=== PATIENT | female | born 1955 | race Caucasian/White ===

== ENCOUNTER 2019-02-13 10:10 | Inpatient (IN) | payer OTHER ==
[~2019-02-13] VITALS: Ht 165.1 cm; Wt 78.0 kg
[2019-02-13] VITALS (13 sets, daily range): BP systolic 117–137; BP diastolic 60–88; PULSE 78–116; RESP 12–22; Ht 165.1 cm; Wt 78.0 kg
--- NOTE | 2019-02-13 12:49 | HP ---
Date/Time of Note Date/Time of Note DATE: 02/13/19 TIME: 12:40 Assessment/Plan VTE Prophylaxis SCD applied (from Nsg): No SCD contraindicated: bilateral LE trauma Pharmacological prophylaxis: heparin Assessment/Plan Problems: (1) Pre-op exam Status: Acute Comment: We do not have all the labs back but assuming the laboratory and chest x-ray are normal in this patient should be considered an excellent surgical candidate. She is at low risk as compared to her age-matched peers during due to her being so physically active and in good condition. She should do well using all standard routine anesthesia precautions although I would give her breathing treatment on-call to the OR, due to the history of asthma. The modified Mayers's risk classification should be considered low to intermediate risk. The EKG is unremarkable (2) Trimalleolar fracture of left ankle Status: Acute Comment: For surgical repair today with Dr. Nath Qualifiers: Encounter type: initial encounter Fracture type: closed Qualified Codes: S82.852A - Displaced trimalleolar fracture of left lower leg, initial encounter for closed fracture (3) Rhinitis Status: Chronic Comment: Noted. Consideration for Montella cast Qualifiers: Rhinitis type: allergic Allergic rhinitis trigger: unspecified Allergic rhinitis seasonality: non-seasonal Qualified Codes: J30.89 - Other allergic rhinitis (4) Gallstone pancreatitis Status: Resolved Comment: Historical note and not active (5) Status post cholecystectomy Status: Chronic Comment: Historical note and not relevant to the current situation (6) Migraine syndrome Status: Chronic Comment: Adequately compensated (7) Asthma, mild intermittent Status: Chronic Comment: Recommend breathing treatment health information technologist to the OR Qualifiers: Asthma complication type: uncomplicated Qualified Codes: J45.20 - Mild intermittent asthma, uncomplicated CC: CHINA BERNAL MD; MICHAEL NATH MD ; HPI/ROS Admit Date/Time Admit Date/Time February 13 2019 Hx of Present Illness This is the first [facility] admission for this 63-year-old right-handed female who was admitted directly from [facility] [place] [facility] [place] for surgery. She had been in her usual state of health with a history of a prior left ankle fracture that had done well. On the evening of February 09, 2019 she was carrying her brand-new puppy [place] stairs in front of her house missed a step fell injuring the left ankle. She was seen at [facility] and was diagnosed as having a trimalleolar fracture placed in a posterior splint and told to see her regular physicians at [facility] [place] [facility] [place]. He was seen today and is being admitted directly for ORIF of this unstable fracture. She is otherwise in general very good health and on no medications. Please see the review of systems ROS Constitutional: no complaints (No fevers chills sweats, or unplanned weight change) Eyes: no complaints ENT: other (Chronic allergic rhinitis otherwise negative) Respiratory: no complaints (History of asthma intermittent mild with nocturnal awakening 2-3 days/week) Cardiovascular: no complaints (No chest pain palpitations orthopnea and PND and she was able to climb multiple flights of stairs unimpeded prior to the injury and could climb in the [place] hiking 4-5 miles unimpeded) Gastrointestinal: no complaints Genitourinary: no complaints Musculoskeletal: other (Prior to the injury well compensated. Left ankle pain since) Skin: no complaints Neurologic: no complaints Endocrine: no complaints Lymphatic: no complaints (No bleeding disorders no history of blood clots) Psychological: no complaints, nl mood/affect Immunologic: no complaints PMH/Family/Social Past Medical History Medical History: other (Asthma intermittent mild; history of gallstone pancreatitis 2005; Ab0; migraine syndrome; allergic rhinitis) Medications Multiple vitamins once a day Coded Allergies: No Known Allergy (Unverified , 02/13/19) Past Surgical History Past Surgical Hx: cholecystectomy Family History Significant Family History: hypertension, lung disease (Asthma), other (Positive abdominal aortic aneurysm; positive osteoporosis; negative for anesthesia reactions) Social History Born in [facility] [place] and raised. 2 years of college without experience. for 25 years and lives with her spouse and pet dogs. Retir ed [employer] [place] Alcohol Use: occasionally Smoking Status: Never smoker Drug Use: none Exam/Review of Systems Vital Signs Vitals Vital Signs Date Temp Pulse Resp B/P (MAP) Pulse Ox O2 O2 Flow FiO2 Time Delivery Rate 02/13/19 98.1 72 18 130/72 99 10:24 (91) Exam Constitutional: alert, oriented Psych: no complaints, nl mood/affect Head: normocephalic, atraumatic Eyes: nl conjunctiva, EOMI, nl lids, nl sclera, PERRL ENMT: nl external ears & nose, nl lips & teeth, nl nasal mucosa & septum, mucosa pink and moist Neck: supple, non-tender Respiratory: clear to auscultation, normal air movement Cardiovascular: regular rate and rhythm, nl pulses Gastrointestinal: soft, nl liver, spleen, non-tender Musculoskeletal: other (Left leg with posterior splint in place otherwise fully negative) Neurological: MANAGER OF ENVIRONMENTAL SERVICES II-XII intact, nl mental status, nl speech, nl strength Skin: nl turgor, rash or lesions Lymph: nl lymph nodes RADHA LUU MD Feb 13, 2019 12:49
--- NOTE | 2019-02-13 12:50 | ERD ---
ER Documentation Chief Complaint Chief Complaint SEND BY PMD FOR ADMISSION, NEEDS ANKLE SURGERY HPI 63-year-old female presenting with left ankle injury she sustained on 02/09/2019. She states that she tripped and fell off her front porch. She went to [facility] where she was diagnosed with an ankle fracture and placed in a splint. She followed up with Dr. Cano at [facility] today and was told she needed emergent surgery. She denies any numbness or tingling in her foot or leg. The pain is currently 4 out of 10, sharp, nonradiating, in the left ankle. Exacerbated by any movement. Improved with rest. ROS All systems reviewed and are negative except as per history of present illness. Allergies Allergies: Coded Allergies: No Known Allergy (Unverified , 02/13/19) PMhx/Soc Medical and Surgical Hx: pt denies Surgical Hx Hx Miscellaneous Medical Probl: Yes Hx Alcohol Use: No Hx Substance Use: No Hx Tobacco Use: No Smoking Status: Never smoker FmHx No pertinent history Physical Exam Vitals Vital Signs Date Temp Pulse Resp B/P (MAP) Pulse Ox O2 O2 Flow FiO2 Time Delivery Rate 02/13/19 98.1 72 18 130/72 99 10:24 (91) Physical Exam Const: No acute distress Head: Atraumatic Eyes: Normal Conjunctiva ENT: Normal External Ears, Nose and Mouth. Neck: Full range of motion. No meningismus. Resp: Clear to auscultation bilaterally Cardio: Regular rate and rhythm, no murmurs Abd: Soft, non tender, non distended. Normal bowel sounds Skin: No petechiae or rashes Back: No midline or flank tenderness Ext: LLE in splint, toes appear well perfused. otherwise exam limited due to splint in place. All other extremities atraumatic, pulses intact. Neur: Awake and alert Psych: Normal Mood and Affect Procedures/MDM Patient is presenting with recent left ankle injury 4 days ago, grossly neurovascularly intact. She is hemodynamically stable. She was already seen by her primary care doctor and admitting physician, Dr. Tong. Preop labs have been ordered. [facility] Diagnosis: Primary Impression: Fracture of ankle, trimalleolar, left, closed Encounter type: initial encounter Qualified Codes: S82.852A - Displaced trimalleolar fracture of left lower leg, initial encounter for closed fracture Condition: Stable CHINA BERNAL MD Feb 13, 2019 12:50
[2019-02-13] MEDS ORDERED: ACETAMINOPHEN 325 MG TAB PO PRN ×2 (13:00→18:30)
[2019-02-13] MEDS ORDERED: ONDANSETRON 4 MG INJ IV PRN ×3 (13:00→18:30)
[2019-02-13] MEDS ORDERED: MONTELUKAST 10 MG TAB PO ONE (13:00)
[2019-02-13] MEDS: FLUTICASONE/VILANTEROL 100-25 INH SCH (13:00)
[2019-02-13] MEDS ORDERED: CHOL500010 PO (13:59)
[2019-02-13] MEDS ORDERED: UBID100C24 PO (14:00)
[2019-02-13] MEDS ORDERED: MAGN250T24 PO (14:00)
[2019-02-13] MEDS ORDERED: CALC-209 PO (14:01)
--- NOTE | 2019-02-13 16:40 | PREAC ---
Date/Time of Note Date/Time of Note DATE: 02/13/19 TIME: 16:38 Anesthesia Eval and Record Evaluation Time Pre-Procedure Interview DATE: 02/13/19 TIME: 16:38 Age 63 Sex female NPO: 8 hrs (trimalleoular fracture) Preoperative diagnosis left ankle trimalleoular fracture Planned procedure ORIF left ankle Past Medical History Past Medical History: Includes Pulm: Asthma Surgery & Anesthesia Issues No known issue Meds Anticoagulation: No Beta Kg within 24 hr: No Reason Beta Kg not given: Pt. not on B-Kg Reported Medications Calcium Carbonate/Vitamin D3 (Calcium 250+D Tablet) 1 Each Tablet, 1 EACH PO DAILY, TAB 02/13/19 Ubidecarenone (Coq-10) 100 Mg Capsule, 100 MG PO DAILY, CAP 02/13/19 Magnesium (Magnesium) 250 Mg Tablet, 250 MG PO BID, TAB 02/13/19 Cholecalciferol (Vitamin D3) 5,000 Unit Tablet, 2500 UNIT PO Q OTHER DAY, TAB 02/13/19 Current Medications Ondansetron HCl (Zofran Inj) 4 mg BRIDGE ORDER PRN IV NAUSEA/VOMITING; Start 02/13/19 at 13:00; Stop 02/14/19 at 12:59 Acetaminophen (Tylenol Tab) 650 mg ER BRIDGE PRN PO .MILD PAIN 1-3 OR TEMP; Start 02/13/19 at 13:00; Stop 02/14/19 at 12:59 Fluticasone/ Vilanterol (Breo Ellipta 100-25 Mcg Inh) 1 inh DAILY INH ; Start 02/13/19 at 13:00 Meds reviewed: Yes Allergies Coded Allergies: No Known Allergy (Unverified , 02/13/19) Allergies Reviewed: Yes Labs/Studies Labs Reviewed: Reviewed by anesthesiologist Result Diagram: 02/13/19 1251 02/13/19 1251 Laboratory Tests 02/13/19 12:51 test: N/A Studies: ECG (sr), CXR (nl) Pre-procedure Exam Last vitals Vital Signs Date Temp Pulse Resp B/P (MAP) Pulse Ox O2 O2 Flow FiO2 Time Delivery Rate 02/13/19 75 20 119/75 99 Room Air 15:00 (90) 02/13/19 98.1 10:24 Airway: Adequate mouth opening Mallampati: Mallampati II Teeth: Normal Lung: Normal Heart: Normal ASA Physical Status ASA physical status: 2 Emergency: None Planned Anesthetic General/MAC: LMA Nerve block: Femoral (left), Sciatic (left) Planned Pain Management Single shot nerve block, Parenteral pain med Pre-operative Attestations Prior to commencing anesthesia and surgery, the patient was re-evaluated, there was verification of: *The patient's identity *The results of appropriate recent lab work and preoperative vital signs *The above evaluation not changing prior to induction *Anesthetic plan, risk benefits, alternative and complications discussed with patient/family; questions answered; patient/family understands, accepts and wishes to proceed. TG EDDY MD Feb 13, 2019 16:40
[2019-02-13] MEDS ORDERED: DIPHENHYDRAMINE 50 MG INJ IV PRN (17:00)
[2019-02-13] MEDS ORDERED: MEPERIDINE 25 MG INJ IV PRN (17:00)
[2019-02-13] MEDS ORDERED: HYDROmorphONE 1 MG/5 ML IV SYRINGE IV PRN ×3 (17:00)
[2019-02-13] MEDS ORDERED: KETOROLAC 30 MG INJ IV PRN (17:00)
[2019-02-13] MEDS ORDERED: FENTAnyl 50 MCG/ML VIAL IV PRN ×3 (17:00)
[2019-02-13] MEDS ORDERED: ROPIVACAINE 0.5 % 30 ML VIAL ONE ×2 (17:05→17:22)
[2019-02-13] MEDS ORDERED: POLYMYXIN/BACITRACIN 1L IRRIG ONE ×2 (17:05→17:11)
[2019-02-13] MEDS ORDERED: NEOMYC/POLYMYX/BACIT 30 GM OINT ONE (17:05)
[2019-02-13] MEDS ORDERED: MIDAZOLAM 1 MG/ML 2 ML INJ ONE (17:18)
[2019-02-13] MEDS ORDERED: METOCLOPRAMIDE 10 MG INJ ONE (17:19)
[2019-02-13] MEDS ORDERED: PROPOFOL 20 ML ONE ×2 (17:21→21:07)
[2019-02-13] MEDS ORDERED: ONDANSETRON 4 MG INJ ONE (17:21)
[2019-02-13] MEDS ORDERED: CEFAZOLIN 1 GM INJ ONE (17:21)
[2019-02-13] MEDS ORDERED: KETOROLAC 30 MG INJ ONE (17:22)
[2019-02-13] MEDS ORDERED: ROPIVACAINE 0.2% 20 ML VIAL ONE (18:20)
[2019-02-13] MEDS ORDERED: DIPHENHYDRAMINE 25 MG CAP PO PRN (18:30)
[2019-02-13] MEDS ORDERED: HYDROmorphONE 1 MG/ML SYG IV PRN (18:30)
[2019-02-13] MEDS ORDERED: CEFAZOLIN 1 GM INJ IV SCH (18:30)
[2019-02-13] MEDS ORDERED: oxyCODONE 5 MG TAB PO PRN (18:30)
[2019-02-13] MEDS ORDERED: FENTAnyl 50 MCG/ML VIAL ONE (18:41)
[2019-02-13] MEDS ORDERED: HYDROmorphONE 2 MG/ML SYG ONE (19:03)
--- NOTE | 2019-02-13 21:23 | OPR ---
Date/Time of Note Date/Time of Note DATE: 02/13/19 TIME: 21:23 Operative Report Procedure Date: Feb 13, 2019 Preoperative Diagnosis LEFT ANKLE TRIMALLEOLAR ANKLE FRACTURE Postoperative Diagnosis LEFT ANKLE TRIMALLEOLAR ANKLE FRACTURE LEFT ANKLE SYNDESMOSIS DISRUPTION LEFT ANKLE LOOSE BODY Operation/Procedure Performed LEFT ANKLE TRIMALLEOLAR ANKLE FRACTURE ORIF WITHOUT FIXATION OF POSTERIOR LIP LEFT ANKLE SYNDESMOSIS ORIF LEFT ANKLE LOOSE BODY REMOVAL Surgeon SHREYAS NATH MD Manager Bridge NONE Anesthesia Type: general, other (POPLITEAL AND ADDUCTOR) Anesthesiologist: TG EDDY MD Tourniquet Time: 107 MIN AT 250 MMG Estimated Blood Loss: minimal Transfusion none Specimen NONE Grafts/Implants Arthrex distal fibular titanium locking plate, tightrope, 3.0 mm quickfix screws x 2 Arthrex Amnion Mimedix Amniotic Membrane Complications none Pt Condition Post Procedure: stable Disposition: PACU Indications Patient is a 63-year-old female who sustained a left ankle trimalleolar fracture 3 days ago. She presented to my office this morning with a displaced ankle fracture and impending open wound over the medial malleolus. Given the severity of the impending open wound I admit the patient to the emergency room for urgent open reduction internal fixation this evening. Risk Note: Patient was explained the risks and benefits of surgery and the patient's iroquois language including not limited to infection, bleeding, injury to blood vessels, nerves, ligaments or tendons. Risks of anesthesia, deep vein thrombosis and need for reduce future surgery. Patient acknowledged these risk by signing the surgical consent form. Procedure Description The patient was met in the preoperative holding area, marked with the correct operative extremity confirmed with both patient and consent. The patient was then brought back in the operative theater, placed supine on operative table, given preoperative antibiotics and preoperative regional block anesthesia. The patient was then prepped and draped in the normal sterile fashion. All parties in the room did a timeout and everyone agreed it was the correct patient, and extremity and procedure. Attention was then turned initially to the distal fibular fracture. An incision was made over the the fibula. The incision was taken down to the fibula with care taken to avoid injury to the neurovascular structures. The fracture was identified and reduced and fixated with a distal fibular plate and fibula was reduced and held out to show that there was fibular length and alignment and rotation had been re-achieved. Once this was shown, the wound was irrigated thoroughly. A manual external rotation stress xray was performed showing syndesmosis widening. A syndesmotic tightrope was then placed across the joint to reduce the syndesmosis. Attention was then brought over to the medial aspect of the ankle and incision w as taken down over the medial aspect of the ankle where there was shown to be a displaced medial malleolus fracture. The joint was investigated and large 1.0 cm loose body was removed from the medial clear space. The remainder of the joint was thoroughly irrigate. The fracture was then reduced and fixated with 2 3.0 mm QuicFix partially threaded screws All wounds were thoroughly irrigated and Amnion amniotic membrane was laid over the medial and lateral ankle wound and then closed with initially 2-0 Vicryl, followed by 3-0 Monocryl followed by 3-0 nylon in a vertical mattress fashion. All wounds were dressed with amniotic membrane over the impending open wound site and Xeroform, antibiotic ointment, 4 x 4s, 5 ABDs were placed and the patient was placed in a well-padded short leg splint. Tourniquet had been brought down prior to this and hemostasis had been achieved prior to the wound closure. The wounds were irrigated thoroughly prior to closure as well. All sponge and needle counts were correct and toes were warm and well perfused in the PACU SHREYAS NATH MD Feb 13, 2019 21:23
[2019-02-13] MEDS: CEFAZOLIN 1 GM/50 ML (PMX) 50 ML IVPB SCH (23:14)
[2019-02-13] MEDS: GABAPENTIN 300 MG CAP PO SCH (23:14)
[2019-02-14 03:46] VITALS: BP 110/57; PULSE 72; RESP 18
[2019-02-14] MEDS: CEFAZOLIN 1 GM/50 ML (PMX) 50 ML IVPB SCH ×3 (05:45→21:18)
[2019-02-14 07:28] VITALS: BP 114/66; PULSE 74; RESP 18
[2019-02-14] MEDS: FLUTICASONE/VILANTEROL 100-25 INH SCH (08:58)
[2019-02-14] MEDS ORDERED: ASCORBIC ACID 500 MG TAB.CHEW PO SCH (09:00)
[2019-02-14] MEDS: GABAPENTIN 300 MG CAP PO SCH ×3 (09:01→21:18)
[2019-02-14] MEDS: CHOLECALCIFEROL 1,000 UNIT TAB PO SCH (09:04)
[2019-02-14] MEDS: ASCORBIC ACID 500 MG TAB PO SCH (10:39)
[2019-02-14 13:57] VITALS: BP 117/65; PULSE 84; RESP 18
--- NOTE | 2019-02-14 14:03 | PN ---
Date/Time of Note Date/Time of Note DATE: 02/14/19 TIME: 14:01 Assessment/Plan VTE Prophylaxis Risk score (from [facility])>0 risk: 4 SCD applied (from [facility]): Yes Pharmacological prophylaxis: heparin Lines/Catheters IV [facility]ter Type (from [facility]): Peripheral IV Assessment/Plan Problems: (1) Fracture of ankle, trimalleolar, left, closed Status: Acute Comment: Doing well postop. At this time she is not quite ready for discharge so we will aim for tomorrow Qualifiers: Encounter type: initial encounter Qualified Codes: S82.852A - Displaced trimalleolar fracture of left lower leg, initial encounter for closed fracture (2) Status post ORIF of fracture of ankle Onset Date: ~ 02/13/2019 Status: Acute Comment: Good outcome (3) Asthma, mild intermittent Status: Chronic Comment: Stable and controlled Qualifiers: Asthma complication type: uncomplicated Qualified Codes: J45.20 - Mild intermittent asthma, uncomplicated (4) Migraine syndrome Status: Chronic Comment: Adequate control Result Diagram: 02/13/19 1251 02/13/19 1251 Results 24hrs Laboratory Tests Test 02/14/19 03:30 Urine Color ARIES Urine Clarity SLIGHTLY CLOUDY A Urine pH 5.0 Urine Specific [place] 1.028 Urine Ketones TRACE A Urine Nitrite NEGATIVE Urine Bilirubin NEGATIVE Urine Urobilinogen NEGATIVE Urine Leukocyte Esterase NEGATIVE Urine Microscopic RBC 1 Urine Microscopic WBC 3 Urine Squamous Epithelial Cells FEW Urine Bacteria FEW A Urine Mucus FEW A Urine Hemoglobin NEGATIVE Urine Glucose NEGATIVE Urine Total Protein NEGATIVE Subjective 24 Hr Interval Summary Free Text/Dictation Patient reports she is feeling well except that she is tired (receiving gabapentin). Constitutional: no complaints Respiratory: no complaints Cardiovascular: no complaints Gastrointestinal: no complaints Genitourinary: no complaints Exam/Review of Systems Exam Vitals Vital Signs Date Temp Pulse Resp B/P (MAP) Pulse Ox O2 O2 Flow FiO2 Time Delivery Rate 02/14/19 98.3 84 18 117/65 99 Room Air 13:57 (82) 02/14/19 2.0 03:46 Intake and Output 02/13/19 02/13/19 02/14/19 1515:00 23:00 07:00 IntakeIntake Total 860 ml 350 ml OutputOutput Total 5 ml 450 ml BalanceBalance 855 ml -100 ml Constitutional: alert, oriented Respiratory: clear to auscultation, normal air movement Cardiovascular: regular rate and rhythm, nl pulses Gastrointestinal: soft, nl liver, spleen, non-tender Results Results 24hrs Laboratory Tests Test 02/14/19 03:30 Urine Color ARIES Urine Clarity SLIGHTLY CLOUDY A Urine pH 5.0 Urine Specific [place] 1.028 Urine Ketones TRACE A Urine Nitrite NEGATIVE Urine Bilirubin NEGATIVE Urine Urobilinogen NEGATIVE Urine Leukocyte Esterase NEGATIVE Urine Microscopic RBC 1 Urine Microscopic WBC 3 Urine Squamous Epithelial Cells FEW Urine Bacteria FEW A Urine Mucus FEW A Urine Hemoglobin NEGATIVE Urine Glucose NEGATIVE Urine Total Protein NEGATIVE Medications Medication Current Medications Fluticasone/ Vilanterol (Breo Ellipta 100-25 Mcg Inh) 1 inh DAILY INH ; Start 02/13/19 at 13:00 Ondansetron HCl (Zofran Inj) 4 mg Q4H PRN IV NAUSEA AND/OR VOMITING Last administered on 02/14/19at 10:45; Admin Dose 4 MG; Start 02/13/19 at 18:30 Diphenhydramine HCl (Benadryl) 25 mg Q4H PRN PO ITCHING; Start 02/13/19 at 18:30 Rivaroxaban (Xarelto) 10 mg WITH DINNER PO ; Start 02/14/19 at 17:55 Oxycodone HCl (Roxicodone) 5 mg Q4H PRN PO MODERATE PAIN LEVEL 4-6 Last a dministered on 02/14/19at 09:08; Admin Dose 5 MG; Start 02/13/19 at 18:30 Acetaminophen (Tylenol Tab) 325 mg Q4H PRN PO MILD PAIN(1-3)OR ELEVATED TEMP; Start 02/13/19 at 18:30 Hydromorphone HCl (Dilaudid) 1 mg Q3H PRN IV SEVERE PAIN LEVEL 7-10 Last administered on 02/14/19at 10:42; Admin Dose 1 MG; Start 02/13/19 at 18:30 Gabapentin (Neurontin) 300 mg TID PO Last administered on 02/14/19at 13:36; Admin Dose 300 MG; Start 02/13/19 at 21:00 Cefazolin Sodium 50 ml @ 100 mls/hr Q8 IVPB Last administered on 02/14/19 13:36; Admin Dose 100 MLS/HR; Start 02/13/19 at 22:00; Stop 02/15/19 at 14:29 Cholecalciferol (Vitamin D) 5,000 unit DAILY PO Last administered on 02/14/19at 09:04; Admin Dose 5,000 UNIT; Start 02/14/19 at 09:00 Ascorbic Acid (Vitamin C) 500 mg DAILY PO Last administered on 02/14/19at 10:39; Admin Dose 500 MG; Start 02/14/19 at 09:40 RADHA LUU MD Feb 14, 2019 14:03
--- NOTE | 2019-02-14 14:45 | PAC ---
Date/Time of Note Date/Time of Note DATE: 02/14/19 TIME: 14:44 Post-Anesthesia Notes Post-Anesthesia Note Last documented vital signs Vital Signs Date Temp Pulse Resp B/P (MAP) Pulse Ox O2 O2 Flow FiO2 Time Delivery Rate 02/14/19 98.3 84 18 117/65 99 Room Air 13:57 (82) 02/14/19 2.0 03:46 Activity: WNL Respiratory function: WNL Cardiovascular function: WNL Mental status: Baseline Pain reasonably controlled: Yes Hydration appropriate: Yes Nausea/Vomiting absent: No TG EDDY MD Feb 14, 2019 14:45
--- NOTE | 2019-02-14 15:17 | PN ---
Date/Time of Note Date/Time of Note DATE: 02/14/19 TIME: 15:16 Assessment/Plan Lines/Catheters IV Catheter Type (from Nrsg): Peripheral IV Assessment/Plan Assessment/Plan POD#1 s/p LEFT ANKLE TRIMALLEOLAR ANKLE FRACTURE ORIF WITHOUT FIXATION OF POSTERIOR LIP LEFT ANKLE SYNDESMOSIS ORIF LEFT ANKLE LOOSE BODY REMOVAL NWB to the lle PT to GT Xarelto for DVT prophylaxis po and Iv pain control will keep in hospital for another night for pain control. Bacilio Nath MD Subjective 24 Hr Interval Summary Patient doing ok. Pain is still very high Constitutional: no complaints Feeding: advancing diet Pain Control: well controlled Exam/Review of Systems Vital Signs Vitals Vital Signs Date Temp Pulse Resp B/P (MAP) Pulse Ox O2 O2 Flow FiO2 Time Delivery Rate 02/15/19 98.0 95 18 122/76 95 14:29 (91) 02/14/19 Room Air 13:57 02/14/19 2.0 03:46 Intake and Output 02/14/19 02/14/19 02/15/19 1515:00 23:00 07:00 IntakeIntake Total 800 ml 450 ml 350 ml OutputOutput Total 600 ml BalanceBalance 800 ml 450 ml -250 ml Exam Constitutional: alert, oriented, well developed Musculoskeletal: other (LLE/ splint intact, toes wwp, toes wiggle, silt to the exposed toes) Results Result Diagram: 02/13/19 1251 02/13/19 1251 SHREYAS NATH MD Feb 14, 2019 15:17
[2019-02-14] MEDS ORDERED: KETOROLAC 30 MG INJ IV STA (15:18)
[2019-02-14] MEDS: ACETAMINOPHEN 500 MG TAB PO SCH ×2 (15:48→21:18)
[2019-02-14] MEDS ORDERED: RIVAROXABAN 10 MG TABLET PO SCH (17:55)
[2019-02-14 19:30] VITALS: BP 114/67; PULSE 87; RESP 18
[2019-02-15 02:10] VITALS: BP 125/62; PULSE 86; RESP 18
[2019-02-15] MEDS: ACETAMINOPHEN 500 MG TAB PO SCH ×2 (04:33→09:36)
[2019-02-15] MEDS: CEFAZOLIN 1 GM/50 ML (PMX) 50 ML IVPB SCH ×2 (06:11→13:11)
[2019-02-15 08:09] VITALS: BP 129/72; PULSE 83; RESP 18
[2019-02-15] MEDS: FLUTICASONE/VILANTEROL 100-25 INH SCH (09:00)
[2019-02-15] MEDS: CHOLECALCIFEROL 1,000 UNIT TAB PO SCH (09:36)
[2019-02-15] MEDS: ASCORBIC ACID 500 MG TAB PO SCH (09:37)
[2019-02-15] MEDS: GABAPENTIN 300 MG CAP PO SCH ×2 (09:37→13:11)
--- NOTE | 2019-02-15 12:56 | PN ---
Date/Time of Note Date/Time of Note DATE: 02/15/19 TIME: 12:55 Assessment/Plan VTE Prophylaxis Risk score (from Ns)>0 risk: 8 SCD applied (from Ns): Yes Pharmacological prophylaxis: heparin Lines/Catheters IV Catheter Type (from Nrsg): Saline Lock Assessment/Plan Problems: (1) Status post ORIF of fracture of ankle Onset Date: ~ 02/13/2019 Status: Acute Comment: Has done well postoperatively and is now stable for discharge as per orthopedic surgery (2) Migraine syndrome Status: Chronic Comment: Stable and presently quiescent (3) Asthma, mild intermittent Status: Chronic Comment: Controlled and compensated Qualifiers: Asthma complication type: uncomplicated Qualified Codes: J45.20 - Mild intermittent asthma, uncomplicated Result Diagram: 02/13/19 1251 02/13/19 1251 Subjective 24 Hr Interval Summary Free Text/Dictation Patient reports she is doing well and has better pain control and would like to be able to go home today Constitutional: no complaints Respiratory: no complaints Cardiovascular: no complaints Gastrointestinal: no complaints Genitourinary: no complaints Musculoskeletal: other (Some stinging at the area of the surgical site otherwise well) Exam/Review of Systems Exam Vitals Vital Signs Date Temp Pulse Resp B/P (MAP) Pulse Ox O2 O2 Flow FiO2 Time Delivery Rate 02/15/19 97.5 83 18 129/72 94 08:09 (91) 02/14/19 Room Air 13:57 02/14/19 2.0 03:46 Intake and Output 02/14/19 02/14/19 02/15/19 1515:00 23:00 07:00 IntakeIntake Total 800 ml 450 ml 350 ml OutputOutput Total 600 ml BalanceBalance 800 ml 450 ml -250 ml Constitutional: alert, oriented Neck: supple, non-tender Respiratory: clear to auscultation, normal air movement Cardiovascular: regular rate and rhythm, nl pulses Extremities: other (Left lower extremity in a posterior brace patient is able to move her toes and has normal sensation in the toes with good capillary refill) Medications Medication Current Medications Fluticasone/ Vilanterol (Breo Ellipta 100-25 Mcg Inh) 1 inh DAILY INH ; Start 02/13/19 at 13:00 Ondansetron HCl (Zofran Inj) 4 mg Q4H PRN IV NAUSEA AND/OR VOMITING Last administered on 02/14/19 10:45; Admin Dose 4 MG; Start 02/13/19 at 18:30 Diphenhydramine HCl (Benadryl) 25 mg Q4H PRN PO ITCHING; Start 02/13/19 at 18:30 Rivaroxaban (Xarelto) 10 mg WITH DINNER PO Last administered on 02/14/19 18:15; Admin Dose 10 MG; Start 02/14/19 at 17:55 Oxycodone HCl (Roxicodone) 5 mg Q4H PRN PO MODERATE PAIN LEVEL 4-6 Last administered on 02/14/19 09:08; Admin Dose 5 MG; Start 02/13/19 at 18:30 Acetaminophen (Tylenol Tab) 325 mg Q4H PRN PO MILD PAIN(1-3)OR ELEVATED TEMP; Start 02/13/19 at 18:30 Hydromorphone HCl (Dilaudid) 1 mg Q3H PRN IV SEVERE PAIN LEVEL 7-10 Last administered on 02/14/19 10:42; Admin Dose 1 MG; Start 02/13/19 at 18:30 Gabapentin (Neurontin) 300 mg TID PO Last administered on 02/15/19 09:37; Admin Dose 300 MG; Start 02/13/19 at 21:00 Cefazolin Sodium 50 ml @ 100 mls/hr Q8 IVPB Last administered on 02/15/19 06:11; Admin Dose 100 MLS/HR; Start 02/13/19 at 22:00; Stop 02/15/19 at 14:29 Cholecalciferol (Vitamin D) 5,000 unit DAILY PO Last administered on 02/15/19 09:36; Admin Dose 5,000 UNIT; Start 02/14/19 at 09:00 Ascorbic Acid (Vitamin C) 500 mg DAILY PO Last administered on 02/15/19 09:37; Admin Dose 500 MG; Start 02/14/19 at 09:40 Acetaminophen (Tylenol Tab) 500 mg Q6H PO Last administered on 02/15/19 09:36; Admin Dose 500 MG; Start 02/14/19 at 15:30 RADHA LUU MD Feb 15, 2019 12:56
--- NOTE | 2019-02-15 14:03 | PN ---
Date/Time of Note Date/Time of Note DATE: 02/15/19 TIME: 14:03 Assessment/Plan Lines/Catheters IV Catheter Type (from Nrsg): Saline Lock Assessment/Plan Assessment/Plan POD#2 s/p LEFT ANKLE TRIMALLEOLAR ANKLE FRACTURE ORIF WITHOUT FIXATION OF POSTERIOR LIP LEFT ANKLE SYNDESMOSIS ORIF LEFT ANKLE LOOSE BODY REMOVAL NWB to the lle PT to GT Xarelto for DVT prophylaxis po and Iv pain control will dc home today when cleared by Medicine Bacilio Nath MD Subjective 24 Hr Interval Summary Feeling much better today Exam/Review of Systems Vital Signs Vitals Vital Signs Date Temp Pulse Resp B/P (MAP) Pulse Ox O2 O2 Flow FiO2 Time Delivery Rate 02/15/19 98.0 95 18 122/76 95 14:29 (91) 02/14/19 Room Air 13:57 02/14/19 2.0 03:46 Intake and Output 02/14/19 02/14/19 02/15/19 1515:00 23:00 07:00 IntakeIntake Total 800 ml 450 ml 350 ml OutputOutput Total 600 ml BalanceBalance 800 ml 450 ml -250 ml Exam Constitutional: alert, oriented, well developed Musculoskeletal: other (LLE/ Splint intact, toes wiggle, silt to the exposed toes, toes wwp) Results Result Diagram: 02/13/19 1251 02/13/19 1251 SHREYAS NATH MD Feb 15, 2019 14:03
[2019-02-15 14:29] VITALS: BP 122/76; PULSE 95; RESP 18
== END 2019-02-15 16:30 | disposition home or self-care (01) | DRG 494 ==
LOC: E/R 10:10 → REC 12:46 → MS1 22:50
PROVIDERS: ADMIT Internal Medicine; ATTEND Internal Medicine
PROC: 0QSH04Z Reposition Left Tibia with Internal Fixation Device, Open Approach (ICD-10-PCS; 2019-02-13)
PROC: 0SSG04Z Reposition Left Ankle Joint with Internal Fixation Device, Open Approach (ICD-10-PCS; 2019-02-13)
PROC: 0QCH0ZZ Extirpation of Matter from Left Tibia, Open Approach (ICD-10-PCS; 2019-02-13)
PROC: 0QUK0KZ Supplement Left Fibula with Nonautologous Tissue Substitute, Open Approach (ICD-10-PCS; 2019-02-13)
PROC: 0QUH0KZ Supplement Left Tibia with Nonautologous Tissue Substitute, Open Approach (ICD-10-PCS; 2019-02-13)
PROC: 0QSK04Z Reposition Left Fibula with Internal Fixation Device, Open Approach (ICD-10-PCS; principal; 2019-02-13 17:00)
DX: S82.852A Displaced trimalleolar fracture of left lower leg, initial encounter for closed fracture (principal); J45.20 Mild intermittent asthma, uncomplicated; J31.0 Chronic rhinitis; G43.909 Migraine, unspecified, not intractable, without status migrainosus; W10.9XXA Fall (on) (from) unspecified stairs and steps, initial encounter; Y92.009 Unspecified place in unspecified non-institutional (private) residence as the place of occurrence of the external cause; Z90.49 Acquired absence of other specified parts of digestive tract
CPT/HCPCS: 71045; 73610; 80053; 81001; 81003; 82306; 85025; 85610; 85730; 86803; 87340; 93005; 97110; 97116; 97161; 97530; J0690; J1170; J1885; J2250; J2405; J2765; J2795; J3010